=== PATIENT | female | born 1975 | race Caucasian/White ===

== ENCOUNTER 2023-04-17 02:15 | Emergency (ER) | payer MEDICAID ==
[~2023-04-17] VITALS: Ht 160 cm; Wt 81.8 kg
[~2023-04-17 02:15] MED LIST: BUSP10TA3 PO; HYDR-3686 PO; OLAN10TA73 PO; TRAZ-251 PO
[2023-04-17 02:16] VITALS: BP 121/80; PULSE 73; RESP 16; TEMP 98; O2SAT 100
== END 2023-04-17 03:55 | disposition left against medical advice (07) ==
LOC: ER 02:16
DX: F45.8 Other somatoform disorders (principal); Z53.21 Procedure and treatment not carried out due to patient leaving prior to being seen by health care provider
CPT/HCPCS: 99281